=== PATIENT | male | born 1960 ===

== ENCOUNTER → 2024-02-05 14:58 | Outpatient (CLI) | payer OTHER, SELFPAY ==
--- NOTE | ~2024-02-05 | XR_ITS ---
EXAM: XR foot RT min 3V DATE: 02/05/2024 15:12 HISTORY: M79.671 - Pain in right foot . COMPARISON: None available. FINDINGS: Normal mineralization. No fracture or dislocation. No lytic or blastic lesion. Mild degene rative change at the first MTP joint. Plantar enthesopathy. No erosion or periosteal change. Soft tis sues within normal limits. IMPRESSION: No acute osseous finding in the right foot. Reviewed, dictated and finalized at location K.
== END ==
PROVIDERS: PCP Family Medicine; Visit Provider Family Medicine
DX: M79.671 Pain in right foot (principal)
CPT/HCPCS: 73630